=== PATIENT | female | born 1975 | race Caucasian/White ===

== ENCOUNTER 2024-04-13 08:36 | Outpatient (CLI) | payer OTHER ==
[2024-04-13 09:20] LABS: HEMATOCRIT 39.2 % (36.0-45.00); HEMOGLOBIN 13.3 g/dL (12.0-15.00); MEAN CELL VOLUME 85.4 fL (80.00-100.00); MEAN CORPUSCULAR HEMOGLOBIN 28.9 pg (27.00-32.0); MEAN CORPUSCULAR HGB CONC 33.8 g/dl (32.0-36.0); PLATELET COUNT 299 K/uL (150-450); RED BLOOD COUNT 4.59 M/uL (4.00-6.00); RED CELL DISTRIBUTION WIDTH 13.3 % (11.5-14.5)
[2024-04-13 10:11] LABS: PH,URINE 5.5 (5.0-8.0); URINE APPEARANCE Clear; URINE BILIRRUBIN Negative (NEGATIVE); URINE BLOOD Negative; URINE COLOR Yellow; URINE GLUCOSE Negative (NEGATIVE); URINE KETONE Negative (NEGATIVE); URINE LEUKOCYTE Negative; URINE NITRATE Negative; URINE PROTEIN Negative (NEGATIVE); URINE UROBILINOGEN 0.2 E.U./dl
[2024-04-13 10:15] LABS: URINE BACTERIA 98.2 uL (0.0-1933); URINE EPITHELIAL CELLS 7.5 uL (0.0-38.8)
[2024-04-13 10:24] LABS: URINE RBC 1.3 uL (0.0-20.8); URINE WBC 1.6 uL (0.0-23.2)
[2024-04-13 10:47] LABS: ALBUMIN 4.1 gm/dL (3.4-5.0); BILIRUBIN TOTAL 0.39 mg/dL (0.3-1.2); CALCIUM 9.2 mg/dL (8.5-10.1); CHOL HDL RATIO 3.2 (0-5.0); CREATININE SERUM 0.57 mg/dL (0.55-1.02); GFR 114.19; GLOBULINA 3.8 G/DL (2.4-3.5); POTASSIUM 4.78 mEq/L (3.5-5.1); T4 FREE 0.92 NG/ML (0.76-1.46); TOTAL PROTEIN 7.9 gm/dL (6.4-8.2); TSH 2.26 uIU/mL (0.358-3.74)
== END 2024-04-13 08:43 | disposition home or self-care (01) ==
LOC: LAB 08:36
PROVIDERS: ATTEND Specialist
DX: E08.9 Diabetes mellitus due to underlying condition without complications (principal); N39.8 Other specified disorders of urinary system; E78.2 Mixed hyperlipidemia; E07.89 Other specified disorders of thyroid; K92.1 Melena; E11.9 Type 2 diabetes mellitus without complications; E55.9 Vitamin D deficiency, unspecified; Z13.1 Encounter for screening for diabetes mellitus; Z13.228 Encounter for screening for other metabolic disorders; R80.0 Isolated proteinuria; M1A.00X0 Idiopathic chronic gout, unspecified site, without tophus (tophi); Z78.0 Asymptomatic menopausal state; R97.1 Elevated cancer antigen 125 [CA 125]; C56.9 Malignant neoplasm of unspecified ovary; C54.9 Malignant neoplasm of corpus uteri, unspecified; E22.1 Hyperprolactinemia

== ENCOUNTER 2024-04-16 10:58 | Outpatient (CLI) | payer OTHER ==
[2024-04-16 13:25] LABS: ob NEGATIVE (NEGATIVE)
== END 2024-04-16 10:59 | disposition home or self-care (01) ==
LOC: LAB 10:58
PROVIDERS: ATTEND Specialist
DX: N39.8 Other specified disorders of urinary system (principal); E78.2 Mixed hyperlipidemia; E07.89 Other specified disorders of thyroid; K92.1 Melena; E11.9 Type 2 diabetes mellitus without complications; E55.9 Vitamin D deficiency, unspecified; Z13.1 Encounter for screening for diabetes mellitus; Z13.228 Encounter for screening for other metabolic disorders; Z78.0 Asymptomatic menopausal state; R97.1 Elevated cancer antigen 125 [CA 125]; C54.9 Malignant neoplasm of corpus uteri, unspecified; C56.9 Malignant neoplasm of unspecified ovary; E22.1 Hyperprolactinemia